=== PATIENT | female | born 1960 | race Caucasian/White ===

== ENCOUNTER → 2018-07-31 | Outpatient (REF) | payer BC ==
[~2018-07-31] MED LIST: CYCLOBENZAPRINE10 MG PO; DOXEPIN HCL10 MG PO; PRILOSEC20 MG PO; SYNTHROID125 MCG PO; VITAMINS & PO
[2018-07-31 10:22] VITALS: BP 138/97
== END | disposition home or self-care (01) | DRG 951 ==
LOC: PAIN/MGT 10:09
PROVIDERS: ATTEND Anesthesiology Pain Medicine
DX: Z09 Encounter for follow-up examination after completed treatment for conditions other than malignant neoplasm (principal)